=== PATIENT | female | born 1945 | race Caucasian/White ===

== ENCOUNTER → 2017-04-10 | Outpatient (CLI) | payer MEDICARE, OTHER ==
[~2017-04-10] MED LIST: CATAPRES0.1 MG PO; NORCO 5-325 MG1 TAB PO; PROTONIX40 MG PO; SUDAFED30 MG PO
== END | disposition disaster alternative care site (69) ==
LOC: GRAD 12:04 → GLAB 12:30 → GRAD 16:00
DX: K59.00 Constipation, unspecified (principal); K57.92 Diverticulitis of intestine, part unspecified, without perforation or abscess without bleeding; N20.0 Calculus of kidney; K83.1 Obstruction of bile duct; Z90.49 Acquired absence of other specified parts of digestive tract; Z90.710 Acquired absence of both cervix and uterus